=== PATIENT | female | born 1985 ===

== ENCOUNTER 2019-06-03 20:00 | Inpatient (IN) | payer OTHER ==
[2019-06-03] MEDS ORDERED: DEXTROSE 5%-LACTATED RINGERS 500 ML IV ONE ×2 (21:00→22:00)
[2019-06-03 21:55] LABS: BASO % 0.3 % (0-2.0); EOS % 0.7 % (0-4.5); HEMOGLOBIN 10.6 GM/dL (10.7-15.3); LYMPH % 27.2 % (8-40); MCH 22.3 pg (25.7-33.7); MCHC 33.1 g/dl (32.0-36.0); MEAN CELL VOLUME 67.5 fl (80-96); MEAN PLT VOLUME 9.5 fl (7.5-11.1); MONO % 11.2 % (3.8-10.2); NEUT % 60.6 % (42.8-82.8); PLATELET COUNT 145 K/MM3 (134-434); RBC 4.75 M/mm3 (3.60-5.2); RDW 14.5 % (11.6-15.6); WHITE BLOOD COUNT 9.4 K/mm3 (4.0-10.0)
[2019-06-03 22:10] LABS: INR 1.01 (0.83-1.09); PROTHROMBIN TIME (PATIENT) 11.9 SEC (9.7-13.0)
[2019-06-03 22:11] LABS: BLOOD UREA NITROGEN 7.3 mg/dL (7-18); CALCIUM 8.6 mg/dL (8.5-10.1); CREATININE 0.8 mg/dL (0.55-1.3); POTASSIUM 4.1 mmol/L (3.5-5.1)
[2019-06-03 22:12] LABS: ACTIVATED PTT 28.5 SECONDS (25.2-36.5)
[2019-06-03] MEDS ORDERED: CITRIC ACID/SODIUM CITRATE 30 ML UNIT-DOSE CUP PO ONE (23:00)
[2019-06-03] MEDS ORDERED: ELECTROLYTE-148 SOLN 500 ML IV ONE (23:00)
[2019-06-03] MEDS ORDERED: ELECTROLYTE-148 SOLN 1,000 ML IV SCH (23:30)
[2019-06-03] MEDS ORDERED: morphine SULFATE/PF 0.5 MG/ML (2cc Syringe - QUVA) ONE (23:51)
[2019-06-03] MEDS ORDERED: OXYTOCIN 20 UNITS in 0.9% NS 20 UNIT/1,000 ML INFUS.BAG IV ONE (23:57)
[2019-06-04] MEDS: OXYTOCIN 20 UNITS in 0.9% NS 20 UNIT/1,000 ML INFUS.BAG IV SCH ×2 (00:29→02:30)
[2019-06-04 01:06] VITALS: BMI 30.2
[2019-06-04] MEDS ORDERED: METHYLERGONOVINE MALEATE 0.2 MG/1 ML AMP IM PRN (01:10)
[2019-06-04] MEDS ORDERED: ACETAMINOPHEN 1000 MG/100 ML VIAL (NON FORMULARY) IVPB PRN ×2 (01:14→02:46)
[2019-06-04] MEDS ORDERED: OXYTOCIN 20 UNITS in 0.9% NS 20 UNIT/1,000 ML INFUS.BAG IV ONE (01:16)
--- NOTE | 2019-06-04 01:29 | PN ---
Delivery - Delivery Section: Primary Type of Anesthesia: Spinal Delivery, Single - Stages of Labor Date of Delivery: 06/04/19 - Condition of Infant Communications Professional/Measurement Psychologist Present: Yes Name: ParamLeonila Position: Left, OA - 1 Minute Total Score: 8 5 Minutes Total Score: 9 - Feeding Plan Initial Plan: Elected not to breastfeed exclusively throughout hospitalization Remarks - Remarks Remarks: Nonreassuring FH RLQ pain Postop: meconium Nuchal cord x 1 Uneventful c/section.
[2019-06-04] MEDS ORDERED: OXYTOCIN 20 UNITS in 0.9% NS 1000 ML INFUS.BAG IV SCH (01:30)
[2019-06-04] MEDS ORDERED: IBUPROFEN 800 MG/8 ML IJ IVPB PRN (03:46)
--- NOTE | 2019-06-04 08:41 | PN ---
Progress Note (short form) - Note Progress Note: 33F s/p C/S for NRFHR under Duramorph spinal. Vital Signs Temp 97.5 F L 06/04/19 06:00 Pulse 78 06/04/19 06:00 Resp 18 06/04/19 06:00 BP 122/65 06/04/19 06:00 Pulse Ox 100 06/04/19 02:00 Intake & Output 06/03/19 06/03/19 06/04/19 11:59 23:59 11:59 Intake Total 1500 591 Output Total 1800 Balance 1500 -1209 Weight 205 lb Intake: IV 1500 321 D5-Lr - 500 ml @ 250 mls/ 500 hr IV ONCE ONE Rx#: [id number] D5-Lr - 500 ml @ 500 mls/ 500 hr IV ONCE ONE Rx#: [id number] NORMAL SALINE+20 UNITS 321 OXYTOCIN - 20 unit In 1, 000 ml @ 125 mls/hr IV ASDIR SANDRA Rx#:[id number] Plasma-Lyte 148 - 500 ml 500 @ 1000 mls/hr IV ONCE ONE Rx#:[id number] IVPB 270 Oral 0 Output: Urine 1800 Rosas 1800 Other: Voiding Method Toilet Indwelling Catheter # Unmeasured Voids Void 2 Height 5 ft 9 in Body Mass Index (BMI) 30.2 Weight 8 lb Length 18.5 in - NO anesthesia complications
--- NOTE | 2019-06-04 13:07 | OP ---
DATE OF OPERATION: DATE OF DICTATION: 06/04/2019 PREOPERATIVE DIAGNOSES: 1. Intrauterine at 39 weeks. 2. Right lower quadrant pain, rule out concealed abruption. 3. Non-reassuring heart rate. POSTOPERATIVE DIAGNOSES: 1. Intrauterine at 39 weeks. 2. Right lower quadrant pain, rule out concealed abruption. 3. Non-reassuring heart rate. 4. Meconium. 5. Nuchal cord x1. OPERATION: Primary low-segment transverse section. SURGEON: Oliva Castano MD JEEP DRIVER: Megan Gaspar MD ANESTHESIOLOGIST: Roberto Francis MD ANESTHESIA: Spinal. TRANSMISSION ENGINEER: Leonila Virgen MD PROCEDURE AND FINDINGS: Under excellent spinal block in supine position with left lateral tilt, patient was prepped and draped for the section. Abdomen was entered through Pfannenstiel incision that was carried out transversely through subcutaneous tissue and fascia. Rectus muscles were dissected off the fascia and in the midline. Peritoneum was opened in the upper part of the incision and extended vertically. Term uterus with normal adnexa was noted. Bladder flap was incised and peeled off lower uterine segment. Hysterotomy was performed transversely and thick meconium fluid was noted. Hysterotomy was extended transversely using bandage scissors, and female live infant was delivered. Cord was around the neck x1. The baby was suctioned, cord was divided, and was handed over to the short piece handler. She cried and breathed spontaneously. Apgars were 8 and 9 and baby's weight was 8 pounds. Part of the cord was clamped and sent for blood gases. Placenta was delivered and uterine cavity was cleaned. The internal os was dilated. Hysterotomy was closed with single layer with Biosyn 0 suture. Hemostasis was excellent. Pelvis was lavaged. Uterus was placed anatomically in the abdomen. Hemostasis was again inspected and was excellent. Count was correct. Abdomen was closed in layers, with peritoneum closed with Biosyn 2-0 running suture, fascia with Vicryl 1 continuous running suture, subcutaneous tissue was interrupted Biosyn 2-0 sutures, and skin was approximated with subcuticular 3-0 Biosyn and Steri-Strips. Sterile dressing was applied and held in place with binder. Urine was clear in the Rosas catheter bag. Blood loss was approximately 500 mL. Patient withstood the procedure very well, there was no complication, and she was transferred to post-anesthesia care unit comfortable and well. OLIVA CASTANO MD [id number]
--- NOTE | 2019-06-04 13:40 | HP ---
DATE OF ADMISSION: 06/03/2019 HISTORY OF PRESENT ILLNESS: The patient is a 33-year-old black female, 1, para 0, who enters as an emergency to Labor and Delivery suite with complaints of right lower quadrant pain. Patient at 39 weeks of gestation. Patient had essentially uncomplicated course of the . She is being followed and she is a patient of Dr. Smith, for whom I am covering tonight. Past history is unremarkable for any serious issues or surgeries. ALLERGIES: AVOCADO and PEANUTS. REVIEW OF SYSTEMS: Unremarkable except for above-mentioned problems. The patient was admitted to Labor and Delivery and evaluated. Term, fairly large uterus has been noted. The patient was placed on the monitor and the heart rate was in the neighborhood of 175 to 180. The patient failed to have any acceleration and had limited variability. She was actively hydrated, including solution of dextrose. That failed to control her heart and the tracing still non-reassuring. Patient does not have vaginal bleeding or amniotic fluid leaking. She had blood work done that included coagulation panel and all were within normal limits. Nonetheless, I cannot rule out concealed limited abruptio placentae, which would explain tachycardia, decreased variability, and lack of accelerations. PHYSICAL EXAMINATION: General: A very pleasant, bright, well-developed, well-nourished black female, alert, oriented, in mild distress due to the circumstances. Head and Neck: Normal. Coronary, Lungs: Normal. Abdomen: Soft, uterus essentially soft with right lower quadrant tenderness on palpation. No obvious surgical signs of acute abdomen, rebound, etc. Estimated weight 8-1/2 to 9 pounds clinically. Pelvic: Examination, done by Dr. Gaspar, showed cervix is closed, long, posterior. Presenting part is vertex, out of pelvis. Extremities: Within normal limits. IMPRESSION: 1. Intrauterine at term. 2. Normal reassuring heart with tachycardia, decreased variability, and lack of accelerations. 3. Right lower quadrant pain; cannot rule out concealed early abruption. PLAN: Fully discussed with patient and her mother. In view of non-reassuring heart and possible underlying abruption, with patient not responding to bedrest, hydration, and oxygen therapy, section on an urgent basis was recommended. Patient asked pointed and intelligent questions that were answered to her satisfaction. All the risks and possible complications of abdominal surgery were discussed with patient. Patient verbalized full understanding and consents to the operation. Neonatology was called. Will proceed with section as urgently as possible. OLIVA CASTANO MD [id number] MTDD
[2019-06-04] MEDS: IBUPROFEN 600 MG TABLET (FP) PO PRN ×2 (14:39→18:54)
[2019-06-04] MEDS: SIMETHICONE 80 MG TAB.CHEW (FP) PO PRN (18:54)
--- NOTE | 2019-06-04 21:36 | PN ---
Progress Note (short form) - Note Progress Note: Feels well. Happy. Sl. distended. No flatus yet. Incision clean and dry. No CVA, extrem. T.
[2019-06-04] MEDS ORDERED: ENOXAPARIN NA (PORCINE) 30 MG/0.3 ML DISP.SYRIN SQ ONE (22:00)
[2019-06-05] MEDS: BISACODYL 10 MG SUPP.RECT RC PRN (03:41)
--- NOTE | 2019-06-05 06:43 | PN ---
Progress Note (short form) - Note Progress Note: POD # 1 VSS. Feels well. OOB. Pain under control. PE WNL. Abd. soft. Incision clean and dry.. Lochia WNL. No CVA, extrem. T. I/P: Doing well. As ordered.
[2019-06-05] MEDS: IBUPROFEN 600 MG TABLET (FP) PO PRN ×4 (07:11→21:56)
[2019-06-05] MEDS: SIMETHICONE 80 MG TAB.CHEW (FP) PO PRN ×4 (07:12→21:56)
[2019-06-05 08:32] LABS: BASO % 0.4 % (0-2.0); EOS % 1.7 % (0-4.5); HEMATOCRIT 29.1 % (32.4-45.2); HEMOGLOBIN 9.5 GM/dL (10.7-15.3); LYMPH % 17.8 % (8-40); MCH 22.2 pg (25.7-33.7); MCHC 32.8 g/dl (32.0-36.0); MEAN CELL VOLUME 67.8 fl (80-96); MEAN PLT VOLUME 9.1 fl (7.5-11.1); MONO % 9.4 % (3.8-10.2); NEUT % 70.7 % (42.8-82.8); PLATELET COUNT 142 K/MM3 (134-434); RDW 14.5 % (11.6-15.6); WHITE BLOOD COUNT 12.7 K/mm3 (4.0-10.0)
[2019-06-06] MEDS: SIMETHICONE 80 MG TAB.CHEW (FP) PO PRN ×3 (05:44→17:51)
[2019-06-06] MEDS: IBUPROFEN 600 MG TABLET (FP) PO PRN ×4 (05:45→23:53)
--- NOTE | 2019-06-06 07:44 | PN ---
Progress Note (short form) - Note Progress Note: POD # 2. VSS. OOB. Flatus pos. PE: recovering. Good spirits. Incision clean and dry. No CVA, extremities T. Breasts soft; pumping. Lochia WNL I/P: Doing well, recovering. Shower. Planning discharge tomorrow.
[2019-06-06] MEDS: BISACODYL 10 MG SUPP.RECT RC PRN (17:52)
[2019-06-07 08:09] LABS: BASO % 0.4 % (0-2.0); EOS % 3.1 % (0-4.5); HEMATOCRIT 28.3 % (32.4-45.2); HEMOGLOBIN 9.4 GM/dL (10.7-15.3); MCH 22.3 pg (25.7-33.7); MCHC 33.2 g/dl (32.0-36.0); MEAN CELL VOLUME 67.1 fl (80-96); MEAN PLT VOLUME 8.9 fl (7.5-11.1); MONO % 9.8 % (3.8-10.2); NEUT % 60.7 % (42.8-82.8); PLATELET COUNT 161 K/MM3 (134-434); RBC 4.21 M/mm3 (3.60-5.2); RDW 14.4 % (11.6-15.6); WHITE BLOOD COUNT 10.2 K/mm3 (4.0-10.0)
[2019-06-07] MEDS: SIMETHICONE 80 MG TAB.CHEW (FP) PO PRN (11:39)
[2019-06-07] MEDS: IBUPROFEN 600 MG TABLET (FP) PO PRN (11:39)
--- NOTE | 2019-06-07 20:03 | PN ---
Post Progress Note Post Day: 3 Type of Delivery: Primary C/S Vital Signs: Vital Signs Temperature 98.2 F 06/07/19 09:00 Pulse Rate 91 H 06/07/19 09:00 Respiratory Rate 18 06/07/19 09:00 Blood Pressure 120/74 06/07/19 09:00 O2 Sat by Pulse Oximetry (%) 100 06/04/19 02:00 Breast Exam: Yes: Soft Uterus: Yes: Fundus Firm, Fundus below umbilicus Incision: Yes: Dressing dry and intact, Sutures intact Abdomen/GI: Yes: Abdomen soft, Passing flatus, Tolerating PO Lochia: Yes: Serosa Lochia, amount: Small Extremities: Yes: Calves non-tender Perineum: Yes: Intact Activity: Ambulating - Labs Labs: CBC WBC 10.2 K/mm3 (4.0-10.0) H 06/07/19 07:33 RBC 4.21 M/mm3 (3.60-5.2) 06/07/19 07:33 Hgb 9.4 GM/dL (10.7-15.3) L 06/07/19 07:33 Hct 28.3 % (32.4-45.2) L 06/07/19 07:33 MCV 67.1 fl (80-96) L 06/07/19 07:33 MCH 22.3 pg (25.7-33.7) L 06/07/19 07:33 MCHC 33.2 g/dl (32.0-36.0) 06/07/19 07:33 RDW 14.4 % (11.6-15.6) 06/07/19 07:33 Plt Count 161 K/MM3 (134-434) 06/07/19 07:33 MPV 8.9 fl (7.5-11.1) 06/07/19 07:33 Absolute Neuts (auto) 6.2 K/mm3 (1.5-8.0) 06/07/19 07:33 Neutrophils % 60.7 % (42.8-82.8) 06/07/19 07:33 Lymphocytes % 26.0 % (8-40) D 06/07/19 07:33 Monocytes % 9.8 % (3.8-10.2) 06/07/19 07:33 Eosinophils % 3.1 % (0-4.5) D 06/07/19 07:33 Basophils % 0.4 % (0-2.0) 06/07/19 07:33 Nucleated RBC % 0 % (0-0) 06/07/19 07:33 Assessment/Plan dc pt home tomorrow
--- NOTE | 2019-06-07 20:10 | DS ---
Physical Exam-VEGETABLE TESTER Vital Signs: Vital Signs Temperature 98.2 F 06/07/19 09:00 Pulse Rate 91 H 06/07/19 09:00 Respiratory Rate 18 06/07/19 09:00 Blood Pressure 120/74 06/07/19 09:00 O2 Sat by Pulse Oximetry (%) 100 06/04/19 02:00 Constitutional: Yes: Well Nourished, No Distress, Calm Eyes: Yes: WNL, Conjunctiva Clear, EOM Intact HENT: Yes: WNL, Atraumatic, Normocephalic Neck: Yes: WNL, Supple, Trachea Midline Cardiovascular: Yes: WNL, Regular Rate and Rhythm Respiratory: Yes: WNL, Regular, CTA Bilaterally Gastrointestinal: Yes: WNL, Normal Bowel Sounds, Soft ...Rectal Exam: Yes: WNL Renal/: Yes: WNL Pelvis: Yes: WNL External Genitalia: Yes: Normal Internal Exam Deferred: Yes Vaginal Exam: Yes: Normal Cervix: Yes: Normal Uterus: Yes: Normal Adnexa: Normal: Bilateral ....Post : Yes: Uterus firm, Uterus non-tender Breast(s): Yes: WNL Musculoskeletal: Yes: WNL Extremities: Yes: WNL Edema: Yes Edema: LUE: 1+, RUE: 1+, LLE: 1+, RLE: 1+ Integumentary: Yes: WNL Wound/Incision: Yes: Clean/Dry, Well Approximated Neurological: Yes: WNL, Alert, Oriented ...Motor Strength: WNL Psychiatric: Yes: WNL, Alert, Oriented Labs: CBC, BMP 06/07/19 07:33 06/03/19 21:30 Delivery - Delivery Section: Primary Type of Anesthesia: Spinal Episiotomy/Laceration: None EBL (cc): 500 Delivery, Single - Stages of Labor Date of Delivery: 06/04/19 Time of Delivery: 00:28 Time Placenta Delivered: 00:29 - Condition of It Director/Driver Recruiter Present: Yes Name: Leonila Virgen Gender: Female Weight: 3.629 kg Position: Left, OA Total Hours ROM (Hrs/Mins): 2min - 1 Minute Total Score: 8 5 Minutes Total Score: 9 - Feeding Plan Initial Plan: Elected not to breastfeed exclusively throughout hospitalization Discharge Summary Problems reviewed: Yes Procedures: Principal: primary lt c s Other Procedures: none Hospital Course: uneventful Health Concerns: none Plan of Treatment: oob as much as possible Goals: return to work soon Condition: Good - Instructions Diet, Activity, Other Instructions: Physical activity Resume your normal everyday activity as tolerated no heavy lifting or exercise until seen by your surgeon. You may walk unlimited iva of and climb stairs. You may resume driving the car when you feel safe and comfortable behind the wheel. No sexual activity as instructed. Wound care If you have a bandage, leave it on, and keep dry for 48-72 hours. After that time discard the outer bandage. If they are tapes on the skin under the out of bandage leave them in place. They will peel off in the next 7 to 10 days. Do Not Peel them off. You may shower the day after surgery. If there are tapes present on the skin, you may shower over them. Diet There are no dietary restrictions. Eat healthy, high-fiber foods. Drink 6 to 8 glasses of liquid each day. This will assist in keeping your bowels are regular. Pain management You may take Tylenol or acetaminophen or Ibuprofen (for example, Motrin, Advil etc.) from my pain prescription medication is ordered should be taken as prescribed for moderate to severe pain. Call MD for any of the following: call dr mujica for 2 weeks appointment Severe pain not relieved by medication Fever of 101 or higher Excessive bleeding or drainage on dressing Inability to urinate Disposition: HOME - Home Medications Comprehensive Discharge Medication List: Ambulatory Orders Vitamins (Sjr) - 1 tab PO DAILY 06/03/19 Valacyclovir HCl [Valtrex -] 500 mg PO DAILY 06/03/19 Prescription Drug Monitoring Program (I-STOP) results: I-STOP reviewed and no issues identified
[2019-06-08] MEDS: SIMETHICONE 80 MG TAB.CHEW (FP) PO PRN ×2 (02:44→13:11)
[2019-06-08] MEDS: IBUPROFEN 600 MG TABLET (FP) PO PRN ×2 (02:45→13:09)
--- NOTE | 2019-06-08 07:30 | PN ---
Post Progress Note Post Day: 4 Type of Delivery: Primary C/S Vital Signs: Vital Signs Temperature 98.4 F 06/07/19 21:30 Pulse Rate 98 H 06/07/19 21:30 Respiratory Rate 20 06/07/19 21:30 Blood Pressure 132/70 06/07/19 21:30 O2 Sat by Pulse Oximetry (%) 100 06/04/19 02:00 Breast Exam: Yes: Soft Uterus: Yes: Fundus Firm, Fundus below umbilicus, Non-tender Incision: Yes: Dressing dry and intact, Sutures intact Abdomen/GI: Yes: Abdomen soft, Tolerating PO Lochia: Yes: Serosa Lochia, amount: Small Extremities: Yes: Calves non-tender Perineum: Yes: Intact Activity: Ambulating (dc pt home today ) - Labs Labs: CBC WBC 10.2 K/mm3 (4.0-10.0) H 06/07/19 07:33 RBC 4.21 M/mm3 (3.60-5.2) 06/07/19 07:33 Hgb 9.4 GM/dL (10.7-15.3) L 06/07/19 07:33 Hct 28.3 % (32.4-45.2) L 06/07/19 07:33 MCV 67.1 fl (80-96) L 06/07/19 07:33 MCH 22.3 pg (25.7-33.7) L 06/07/19 07:33 MCHC 33.2 g/dl (32.0-36.0) 06/07/19 07:33 RDW 14.4 % (11.6-15.6) 06/07/19 07:33 Plt Count 161 K/MM3 (134-434) 06/07/19 07:33 MPV 8.9 fl (7.5-11.1) 06/07/19 07:33 Absolute Neuts (auto) 6.2 K/mm3 (1.5-8.0) 06/07/19 07:33 Neutrophils % 60.7 % (42.8-82.8) 06/07/19 07:33 Lymphocytes % 26.0 % (8-40) D 06/07/19 07:33 Monocytes % 9.8 % (3.8-10.2) 06/07/19 07:33 Eosinophils % 3.1 % (0-4.5) D 06/07/19 07:33 Basophils % 0.4 % (0-2.0) 06/07/19 07:33 Nucleated RBC % 0 % (0-0) 06/07/19 07:33
[2019-06-08 10:01] VITALS: BP 126/71; PULSE 89; TEMP 98.5
--- NOTE | 2019-06-08 15:31 | PATH ---
Surgical Pathology Report Patient Name: TRINA WYNNE [facility]. Rec. #: [id number] /Age/Gender: 1985 (Age: 33) / F Account: [id number] Location: [facility] OBS/SOLUTIONS DEVELOPER Taken: 06/04/2019 Received: 06/05/2019 Reported: 06/08/2019 Physicians: Javid Lockwood MD Specimen(s) Received PLACENTA Clinical History , 39.1 weeks, tachycardia Final Diagnosis PLACENTA, SECTION: 581 G THIRD TRIMESTER PLACENTA WITH TRIVASCULAR UMBILICAL CORD AND UNREMARKABLE PLACENTAL MEMBRANES. Electronically Signed Shell Michelle M.D. Gross Description The specimen is received fresh labeled placenta and is a 581 gram, 15.5 x 14.5 x 3.8 cm. placenta with attached membranes and umbilical cord. The attached membranes are mcgregor, translucent with focal opacities and insert marginally. The umbilical cord measures 33 cm. in length and averages 1 cm. in diameter. The cord inserts eccentrically, 2.5 cm. to the nearest margin. No true knots or strictures are identified. Cut surface of the umbilical cord reveals 3 vessels. The surface is [place]-blue with minimal fibrin deposition and appropriate caliber vessels. The maternal surface is red-brown and intact. Sectioning reveals red-brown, spongy parenchyma. No lesions are identified. Micropaleontologist sections are submitted in three cassettes as follows: 1- membrane rolls and umbilical cord; 2-3- full thickness sections of placenta. 06/07/2019 [facility]06/07/2019
== END 2019-06-08 14:00 | disposition home or self-care (01) | DRG 788 ==
LOC: JDEL 20:00 → JLDR 22:45 → J3W 06-04 02:20
PROVIDERS: ADMIT Obstetrics & Gynecology; ATTEND Obstetrics & Gynecology
PROC: 10D00Z1 Extraction of Products of Conception, Low, Open Approach (ICD-10-PCS; principal; 2019-06-04)
DX: O76 Abnormality in fetal heart rate and rhythm complicating labor and delivery (principal); O69.81X0 Labor and delivery complicated by cord around neck, without compression, not applicable or unspecified; O77.0 Labor and delivery complicated by meconium in amniotic fluid; Z3A.39 39 weeks gestation of pregnancy; Z37.0 Single live birth
CPT/HCPCS: 36415; 36600; 59025; 80048; 82803; 85025; 85362; 85384; 85610; 85730; 86593; 86762; 86850; 86900; 86901; 87389